=== PATIENT | female | born 1955 | race Caucasian/White ===

== ENCOUNTER → 2018-10-20 | Outpatient (CLI) | payer BC ==
--- NOTE | 2018-10-21 04:46 | REP ---
Clinical: Venous insufficiency . Technique: Sanders scale and color Doppler evaluation using linear high frequency transducer with reflux evaluation. Findings: Ultrasound examination of the right and left lower extremity deep venous structures from the common femoral vein to the popliteal vein demonstrates normal compressibility flow and wave patterns in response to respiration and augmentation. There is no evidence for deep venous thrombosis. Complex right Martines's cyst identified measuring 2.0 x 1.0 x 1.9 cm. Right lower extremity demonstrates reflux through the common femoral vein and proximal to mid superficial femoral vein with the bed tipped in Trendelenburg position. Evaluation in the standing position demonstrates reflux involving the proximal greater saphenous vein measuring 4 mm in diameter with reflux duration of 6.2 seconds as well as the distal greater saphenous vein at the knee measuring 4.4 mm diameter with reflux duration of 6.3 seconds. A collateral vessels noted in the proximal/mid thigh as well as the mid/distal thigh where solvent mixer is identified causing reflux into the distal greater saphenous vein. Left lower extremity demonstrates reflux through the common femoral vein as well as the greater saphenous vein including proximal greater saphenous vein measuring 10.7 mm diameter with reflux duration 3.8 seconds, mid greater saphenous vein measuring 8.4 mm diameter with reflux duration 4.2 seconds, and distal greater saphenous vein measuring 8.8 mm diameter with reflux duration 4.0 seconds. An aneurysm is identified at the level of the knee involving the distal greater saphenous vein which measures greater than 2.5 x 2.3 cm diameter and appears partially thrombosed. Impression: 1. No evidence for deep venous thrombosis. 2. Reflux noted to the bilateral lower extremities as described above. 3. 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 4. Complex right Martines's cyst. Electronically Signed by Wallace Arellano MD 10/21/2018 04:38 A
== END ==
LOC: M RAD 10:30
PROVIDERS: ATTEND Surgery Vascular Surgery
DX: I87.2 Venous insufficiency (chronic) (peripheral) (principal); M71.20 Synovial cyst of popliteal space [Baker], unspecified knee; I72.4 Aneurysm of artery of lower extremity

== ENCOUNTER → 2018-11-20 | Day surgery (SDC) | payer BC ==
[~2018-11-20] VITALS: Ht 165.1 cm; Wt 79.4 kg
[~2018-11-20] MED LIST: IPRA0.00 IN; KLON1TAB PO; LIDOCAINE 2% INJ 100 MG/5 ML SDV (FOR ANES.) As Ordered ONE; LIDOCAINE W/EPINEPHRINE 1% 20ML VIAL As Ordered ONE; LR 1,000 ML IV SCH; MIDAZOLAM INJ 2 MG/2 ML VIAL (J2250) As Ordered ONE; ONDANSETRON 4MG/2ML VIAL (J2405) As Ordered ONE; PROAAER10 INH; PROPOFOL 200 MG/20 ML VIAL As Ordered ONE; fentaNYL 100 MCG/2 ML INJECTION (J3010) As Ordered ONE
[2018-11-20 11:05] VITALS: BP 139/65
== END | disposition home or self-care (01) ==
LOC: M SDC 10:11
PROVIDERS: ATTEND Surgery Vascular Surgery
DX: I83.813 Varicose veins of bilateral lower extremities with pain (principal); Z53.8 Procedure and treatment not carried out for other reasons
CPT/HCPCS: J2250; J2405; J3010

== ENCOUNTER 2018-11-27 10:19 | Day surgery (SDC) | payer BC ==
[~2018-11-27] VITALS: Ht 165.1 cm; Wt 81.2 kg
[~2018-11-27 10:19] MED LIST changes: -LIDOCAINE 2% INJ 100 MG/5 ML SDV (FOR ANES.) As Ordered ONE; -LIDOCAINE W/EPINEPHRINE 1% 20ML VIAL As Ordered ONE; +LR 1,000 ML IV ONE; -LR 1,000 ML IV SCH; -MIDAZOLAM INJ 2 MG/2 ML VIAL (J2250) As Ordered ONE; -ONDANSETRON 4MG/2ML VIAL (J2405) As Ordered ONE; -PROPOFOL 200 MG/20 ML VIAL As Ordered ONE; -fentaNYL 100 MCG/2 ML INJECTION (J3010) As Ordered ONE
[2018-11-27] MEDS ORDERED: fentaNYL 100 MCG/2 ML INJECTION (J3010) As Ordered ONE (12:36)
[2018-11-27] MEDS ORDERED: LIDOCAINE W/EPINEPHRINE 1% 20ML VIAL As Ordered ONE (12:36)
[2018-11-27] MEDS ORDERED: PROPOFOL 500 MG/50 ML VIAL As Ordered ONE (12:36)
[2018-11-27] MEDS ORDERED: MIDAZOLAM INJ 2 MG/2 ML VIAL (J2250) As Ordered ONE (12:36)
[2018-11-27] MEDS ORDERED: LIDOCAINE 2% INJ 100 MG/5 ML SDV (FOR ANES.) As Ordered ONE (12:41)
[2018-11-27] MEDS ORDERED: KETAMINE HCL 200 MG/20 ML VIAL As Ordered ONE (13:08)
[2018-11-27] MEDS ORDERED: ePHEDrine SULFATE 25 MG/5 ML(5MG/ML) SYRINGE As Ordered ONE (13:16)
[2018-11-27 14:50] VITALS: BP 139/76
--- NOTE | 2018-11-28 12:47 | RO ---
DATE OF PROCEDURE: 11/27/2018 ATTENDING SURGEON: Dr. Brigitte Najera OYSTER WASHER: None. PREOPERATIVE DIAGNOSES: Left lower extremity venous stasis ulceration, left lower extremity varicose veins, left lower extremity venous valvular insufficiency. POSTOPERATIVE DIAGNOSES: Left lower extremity venous stasis ulceration, left lower extremity varicose veins, left lower extremity venous valvular insufficiency. PROCEDURE: Left greater saphenous vein radiofrequency ablation. INDICATIONS: The patient is a 63-year-old female with previous ulceration of the lower extremity secondary to venous valvular insufficiency. The patient underwent an ultrasound, which showed left greater saphenous vein venous valvular insufficiency amendable to radiofrequency ablation. The patient will undergo a left greater saphenous vein radiofrequency ablation. ANESTHESIA: Local MAC. ESTIMATED BLOOD LOSS: 10 mL IV FLUIDS: 700 mL HEPARIN: None. COMPLICATIONS: None. DRAINS: None. SPECIMENS: None. IMPLANTS: None. PROCEDURE: The patient was taken to the operating room, placed supine on the operating table and then prepped and draped in a standard surgical fashion. The greater saphenous vein in the left lower extremity was cannulated in the below-knee region. There was a large amount of varicosities and tortuosity in the greater saphenous vein and a wire was used to traverse through the greater saphenous vein, followed by the ablation catheter. Catheter was placed 2 cm distal to the saphenofemoral junction under ultrasound guidance and then solution was injected. The catheter was then used to perform radiofrequency ablation of the left greater saphenous vein from 2 cm distal to the saphenofemoral junction down to the entry site in the below-knee region. The catheter was removed. Dressings were applied. The patient tolerated the procedure well. All instrument, sponge, needle counts were correct at the end the case. There were no complications. Dr. Najera was present for and directed the entire case. The patient was transferred to the recovery room awake, alert, extubated and in stable condition.
== END 2018-11-27 14:57 | disposition home or self-care (01) ==
LOC: M SDC 10:19
PROVIDERS: ATTEND Surgery Vascular Surgery
DX: I83.228 Varicose veins of left lower extremity with both ulcer of other part of lower extremity and inflammation (principal); L97.829 Non-pressure chronic ulcer of other part of left lower leg with unspecified severity
CPT/HCPCS: 36475; C1769; C1894; J2250; J3010

== ENCOUNTER → 2018-12-04 | Outpatient (CLI) | payer BC ==
[~2018-12-04] MED LIST changes: -LR 1,000 ML IV ONE
--- NOTE | 2018-12-04 12:35 | REP ---
LOWER EXTREMITY DUPLEX DOPPLER VENOUS ULTRASOUND: Real-time compression and duplex Doppler interrogation of the left lower extremity deep venous system is performed. Left common femoral, superficial femoral and popliteal veins are fully compressible with transducer pressure and demonstrate normal spontaneous and phasic flow without evidence of deep venous thrombosis. There is thrombosis of the greater saphenous vein as expected, status post ablation procedure 11/20/2018. The superior extend of the greater saphenous vein thrombus is approximately 9 mm from the saphenofemoral junction. Electronically Signed by Blake Sanders MD 12/04/2018 04:41 P
== END ==
LOC: M RAD 10:55
PROVIDERS: ATTEND Surgery Vascular Surgery
DX: I82.819 Embolism and thrombosis of superficial veins of unspecified lower extremity (principal)

== ENCOUNTER → 2023-06-26 | Outpatient (CLI) | payer BC ==
[2023-06-26 12:27] LABS: HEMOGLOBIN 12.8 g/dl (12.0-15.5); MEAN CORPUSCULAR HEMOGLOBIN 28.8 pg (27.0-33.0); MEAN CORPUSCULAR VOLUME 90.1 fl (80.0-96.0); PLATELET COUNT, AUTOMATED 336 10^3/uL (150-450); RED BLOOD COUNT 4.44 10^6/uL (4.00-5.40); WHITE BLOOD COUNT 8.8 10^3/uL (4.0-10.0)
[2023-06-26 12:33] LABS: HEMOGLOBIN A1c 5.8 % (4.0-6.0)
[2023-06-26 12:57] LABS: ALBUMIN 3.7 G/DL (3.2-5.2); ALKALINE PHOSPHATASE 115 U/L (46-116); ALT/SGPT 15 U/L (7.0-40); AST/SGOT 23 U/L (<34); BILIRUBIN,TOTAL 0.5 MG/DL (0.3-1.2); BLOOD UREA NITROGEN 15 MG/DL (9-23); CALCIUM LEVEL 9.3 MG/DL (8.3-10.6); CARBON DIOXIDE LEVEL 28 MMOL/L (20-31); CHLORIDE LEVEL 106 MMOL/L (98-107); CREATININE FOR GFR 0.66 MG/DL (0.55-1.30); GLOMERULAR FILTRATION RATE > 60.0 (>45); GLUCOSE, FASTING 97 MG/DL (74-106); POTASSIUM SERUM 4.3 MMOL/L (3.5-5.1); SODIUM LEVEL 139 MMOL/L (136-145); TOTAL PROTEIN 7.3 G/DL (5.7-8.2)
[2023-06-26 12:59] LABS: FREE T4 0.93 NG/DL (0.89-1.76); THYROID STIMULATING HORMONE 3.205 uIU/ML (0.55-4.78)
== END ==
LOC: M RAD 11:11
PROVIDERS: ATTEND Registered Nurse
DX: M79.662 Pain in left lower leg (principal); E66.9 Obesity, unspecified; R60.0 Localized edema; I83.92 Asymptomatic varicose veins of left lower extremity